=== PATIENT | female | born 2000 | race Caucasian/White ===

== ENCOUNTER 2023-11-21 21:49 | Emergency (ER) | payer BC ==
[2023-11-21 22:17] VITALS: TEMP 98.1
--- NOTE | 2023-11-21 22:23 | ERPHSYRPT ---
- History of Present Illness Time Seen by Provider: 11/21/23 22:23 Historian: patient Exam Limitations: no limitations Patient Subjective Stated Complaint: vomiting since 1300, diffuse abd pain Triage Nursing Assessment: pt ambulatory to bed by self, friend at bedside, pt alert and oriented x3, pt c/o vomiting since 1300, diffuse abd pain/cramping, pt afebrile, pt denies any fever or diarrhea. Physician History: The patient initially presented with severe abdominal pain and persistent vomiting that started around 1 PM on the day of the consultation. The patient described the pain as being diffused throughout the abdomen, with no specific location. The pain was constant and did not radiate elsewhere. No alleviating or aggravating factors were identified. The patient had tried Zofran 4 mg for the vomiting, but it was ineffective. The patient denied any recent exposure to sick individuals, blood in vomit, diarrhea, or the possibility of being . The patient's surgical history included a catheter ablation in March. In a separate consultation, another patient presented with concerns about potential exposure to mononucleosis. The patient reported generalized body soreness, dizziness, and a slightly scratchy throat. No ear pain was reported. The patient denied participation in any sports activities. Timing/Duration: week(s) (1), worse Activities at Onset: rest Quality: sharpness, stabbing Abdominal Pain Onset Location: RLQ, suprapubic Pain Radiation: no radiation Severity of Pain-Max: severe Severity of Pain-Current: severe Modifying Factors: Worsens With: eating, exercise, movement, palpation, vomiting, walking Associated Symptoms: loss of appetite, nausea, vomiting, weakness, No chest pain, No diarrhea, No fever/chills, No neck pain, No shortness of breath Previous symptoms: same symptoms as today Allergies/Adverse Reactions: No Known Drug Allergies Allergy (Verified 11/21/23 22:09) Hx Tetanus, Diphtheria Vaccination/Date Given: Yes Hx Influenza Vaccination/Date Given: No Hx Pneumococcal Vaccination/Date Given: No Immunizations Up to Date: Yes Travel Risk - International Travel Have you traveled outside of the country in past 3 weeks: No - Emerging Infectious Disease Are you exhibiting symptoms associated with any current EIDs: Yes Symptoms: Abdominal Pain, Vomitting - Review of Systems All Other Systems: Reviewed and Negative - Past Medical History Pertinent Past Medical History: Yes Neurological History: No Pertinent History ENT History: No Pertinent History Cardiac History: Arrhythmia Respiratory History: No Pertinent History Endocrine Medical History: No Pertinent History Musculoskeletal History: No Pertinent History GI Medical History: No Pertinent History History: No Pertinent History Psycho-Social History: No Pertinent History Female Reproductive Disorders: No Pertinent History Other Medical History: SVT - Past Surgical History Past Surgical History: Yes Neuro Surgical History: No Pertinent History Cardiac: Other Respiratory: No Pertinent History Gastrointestinal: No Pertinent History Genitourinary: No Pertinent History Musculoskeletal: No Pertinent History Female Surgical History: No Pertinent History Other Surgical History: cardiac ablation - Female History Hx Last Menstrual Period: 11/07/23 Hx Now: No - Social History Smoking Status: Never smoker Exposure to second hand smoke: No Drug Use: none - Social Determinants of Health Will the patient participate in the screening: Yes Do you worry about a steady place to live?: No Do you have any problems with any of the following?: No known problems In the past 12 months,have you had to go without utilities?: No Transportation Issues: No Has anyone in your support network made you feel unsafe?: No Have you or anyone in your house had to go without enough: No - Nursing Vital Signs Nursing Vital Signs: Initial Vital Signs Pulse Rate 78 11/21/23 22:08 Respiratory Rate 20 11/21/23 22:08 Blood Pressure 139/73 11/21/23 22:08 O2 Sat by Pulse Oximetry 98 11/21/23 22:08 Pain Scale Pain Intensity 0 - Physical Exam General Appearance: moderate distress Eye Exam: eyes nml inspection Ears, Nose, Throat Exam: normal ENT inspection Neck Exam: normal inspection, non-tender, supple, full range of motion Respiratory Exam: normal breath sounds Cardiovascular Exam: tachycardia, capillary refill <2 sec Gastrointestinal/Abdomen Exam: soft, tenderness (LLQ, suprapubic) Back Exam: No CVA tenderness Extremity Exam: normal inspection, No swelling Neurologic Exam: alert, oriented x 3, cooperative Skin Exam: normal color, warm, dry, No rash SpO2 Interpretation: normal SpO2: 99 O2 Delivery: Room Air - Course Nursing assessment & vital signs reviewed: Yes - CT Exams Abdomen/Pelvis CT Interpretation: Tele-radiologist Report, No appendicitis, Other (right ovarian cyst, fatty liver) Ordered Tests: Active Orders 24 hr Category Date Time Status Lactic Acid Stat Lab 11/22/23 00:44 Completed UA W/RFX UR CULTURE Stat Lab 11/22/23 01:24 Completed Medication Summary Discontinued Medications Generic Name Dose Route Start Last Admin Trade Name César PRN Reason Stop Dose Admin Droperidol 1.25 mg 11/21/23 22:23 11/21/23 22:49 Droperidol 5 Mg/2 Ml Vial IV 11/21/23 22:24 1.25 mg STAT ONE Administration Droperidol Confirm 11/21/23 22:44 Droperidol 5 Mg/2 Ml Vial Administered 11/21/23 22:45 Dose 5 mg .ROUTE .STK-MED ONE Sodium Chloride 1,000 mls @ 999 mls/hr 11/21/23 22:23 11/22/23 00:01 Sodium Chloride 0.9% 1000 Ml IV 11/21/23 23:23 Infused .Q1H1M STA Infusion Sodium Chloride Confirm 11/21/23 22:45 Sodium Chloride 0.9% 1000 Ml Administered 11/21/23 22:46 Dose 1,000 mls @ ud .ROUTE .STK-MED ONE Sodium Chloride 1,000 mls @ 999 mls/hr 11/21/23 23:37 11/22/23 01:03 Sodium Chloride 0.9% 1000 Ml IV 11/22/23 00:37 Infused .Q1H1M STA Infusion Ceftriaxone Sodium 1 gm in 100 mls @ 200 mls/hr 11/21/23 23:38 11/22/23 00:38 Rocephin 1 Gm / 100 Ml Nacl IV 11/22/23 00:07 Infused STAT ONE Infusion Metronidazole 500 mg in 100 mls @ 200 mls/hr 11/21/23 23:38 11/22/23 00:38 Flagyl 500 Mg Ivpb IV 11/22/23 00:07 Infused STAT STA Infusion Sodium Chloride Confirm 11/21/23 23:53 Sodium Chloride 0.9% 1000 Ml Administered 11/21/23 23:54 Dose 1,000 mls @ ud .ROUTE .STK-MED ONE Metronidazole Confirm 11/21/23 23:53 Flagyl 500 Mg Ivpb Administered 11/21/23 23:54 Dose 500 mg in 100 mls @ ud IV .STK-MED ONE Ceftriaxone Sodium Confirm 11/21/23 23:53 Rocephin 1 Gm / 100 Ml Nacl Administered 11/21/23 23:54 Dose 1 gm in 100 mls @ ud IV .STK-MED ONE Morphine Sulfate 2 mg 11/21/23 22:23 11/21/23 22:51 Morphine Sulfate 2 Mg/Ml Inj IV 11/21/23 22:24 2 mg STAT ONE Administration Morphine Sulfate Confirm 11/21/23 22:45 Morphine Sulfate 2 Mg/Ml Inj Administered 11/21/23 22:46 Dose 2 mg .ROUTE .STK-MED ONE Lab/Rad Data: Laboratory Result Diagrams 11/21/23 22:40 11/21/23 22:40 Laboratory Results 11/22/23 11/22/23 11/21/23 Range/Units 01:24 00:44 22:40 WBC (3.98-10.04) x10^3/uL RBC (3.93-5.22) x10^6/uL Hgb (11.2-15.7) g/dL Hct (34.1-44.9) % MCV (79.4-94.8) fL MCH (25.6-32.2) pg MCHC (32.2-35.5) g/dL RDW (11.7-14.4) % Plt Count (182-369) x10^3/uL MPV (9.4-12.3) fL Gran % (34.0-71.1) % Immature Gran % (Auto) (0.001-0.429) % Nucleat RBC Rel Count (0.00-0.2) % Eos # (Auto) (0.04-0.36) x10^3/uL Immature Gran # (Auto) (0.001-0.031) x10^3u/L Absolute Lymphs (auto) (1.18-3.74) x10^3/uL Absolute Monos (auto) (0.24-0.86) x10^3/uL Absolute Nucleated RBC (0.00-0.012) x10^3u/L Lymphocytes % (19.3-51.7) % Monocytes % (4.7-12.5) % Eosinophils % (0.7-5.8) % Basophils % (0.1-1.2) % Absolute Granulocytes (1.56-6.13) x10^3/uL Basophils # (0.01-0.08) x10^3/uL Sodium (135-145) mmol/L Potassium (3.5-5.1) mmol/L Chloride (98-107) mmol/L Carbon Dioxide (22-30) mmol/L Anion Gap (5-15) MEQ/L BUN (7-17) mg/dL Creatinine (0.52-1.04) mg/dL Estimated GFR ML/MIN Glucose (74-106) mg/dL Lactic Acid 1.9 (0.4-2.0) Calcium (8.4-10.2) mg/dL Total Bilirubin (0.2-1.3) mg/dL AST (14-36) U/L ALT (0-35) U/L Alkaline Phosphatase (38-126) U/L Lactate Dehydrogenase (120-246) U/L Serum Total Protein (6.3-8.2) g/dL Albumin (3.5-5.0) g/dL Lipase (23-300) U/L Serum HCG, Qual NEGATIVE (NEGATIVE) Urine Color Yellow (Yellow) Urine Appearance Clear (Clear) Urine pH 8.5 A (4.6-8.0) Ur Specific Burnham >=1.030 A (1.005-1.030) Urine Protein Trace A (Negative) Urine Glucose (UA) Negative (Negative) mg/dL Urine Ketones 15 A (Negative) Urine Blood Negative (Negative) Urine Nitrite Negative (Negative) Urine Bilirubin Negative (Negative) Urine Urobilinogen 1.0 A (0.2) mg/dL Ur Leukocyte Esterase Negative (Negative) U Hyaline Cast (Auto) NONE SEEN (0-2) /LPF Urine Microscopic RBC 0-2 (0-5) /HPF Urine Microscopic WBC 0-2 (0-5) /HPF Ur Epithelial Cells None Seen (None Seen) /HPF Urine Bacteria None Seen (None Seen) /HPF Urine Culture Reflexed NO (NO) Chlamydia DNA Probe (NEGATIVE) N.gonorrhoeae DNA Probe (NEGATIVE) 11/21/23 11/21/23 11/21/23 Range/Units 22:40 22:40 22:30 WBC 11.9 H (3.98-10.04) x10^3/uL RBC 5.44 H (3.93-5.22) x10^6/uL Hgb 17.0 H (11.2-15.7) g/dL Hct 48.5 H (34.1-44.9) % MCV 89.2 (79.4-94.8) fL MCH 31.3 (25.6-32.2) pg MCHC 35.1 (32.2-35.5) g/dL RDW 12.0 (11.7-14.4) % Plt Count 301 (182-369) x10^3/uL MPV 10.2 (9.4-12.3) fL Gran % 77.3 H (34.0-71.1) % Immature Gran % (Auto) 0.6 H (0.001-0.429) % Nucleat RBC Rel Count 0.0 (0.00-0.2) % Eos # (Auto) 0.01 L (0.04-0.36) x10^3/uL Immature Gran # (Auto) 0.07 H (0.001-0.031) x10^3u/L Absolute Lymphs (auto) 2.20 (1.18-3.74) x10^3/uL Absolute Monos (auto) 0.37 (0.24-0.86) x10^3/uL Absolute Nucleated RBC 0.00 (0.00-0.012) x10^3u/L Lymphocytes % 18.4 L (19.3-51.7) % Monocytes % 3.1 L (4.7-12.5) % Eosinophils % 0.1 L (0.7-5.8) % Basophils % 0.5 (0.1-1.2) % Absolute Granulocytes 9.23 H (1.56-6.13) x10^3/uL Basophils # 0.06 (0.01-0.08) x10^3/uL Sodium 142 (135-145) mmol/L Potassium 4.4 (3.5-5.1) mmol/L Chloride 105 (98-107) mmol/L Carbon Dioxide 19 L (22-30) mmol/L Anion Gap 22.2 H (5-15) MEQ/L BUN 9 (7-17) mg/dL Creatinine 0.87 (0.52-1.04) mg/dL Estimated GFR 96.6 ML/MIN Glucose 110 H (74-106) mg/dL Lactic Acid (0.4-2.0) Calcium 10.6 H (8.4-10.2) mg/dL Total Bilirubin 1.10 (0.2-1.3) mg/dL AST 28 (14-36) U/L ALT 23 (0-35) U/L Alkaline Phosphatase 79 (38-126) U/L Lactate Dehydrogenase 232 (120-246) U/L Serum Total Protein 8.9 H (6.3-8.2) g/dL Albumin 5.3 H (3.5-5.0) g/dL Lipase 67 (23-300) U/L Serum HCG, Qual (NEGATIVE) Urine Color (Yellow) Urine Appearance (Clear) Urine pH (4.6-8.0) Ur Specific Burnham (1.005-1.030) Urine Protein (Negative) Urine Glucose (UA) (Negative) mg/dL Urine Ketones (Negative) Urine Blood (Negative) Urine Nitrite (Negative) Urine Bilirubin (Negative) Urine Urobilinogen (0.2) mg/dL Ur Leukocyte Esterase (Negative) U Hyaline Cast (Auto) (0-2) /LPF Urine Microscopic RBC (0-5) /HPF Urine Microscopic WBC (0-5) /HPF Ur Epithelial Cells (None Seen) /HPF Urine Bacteria (None Seen) /HPF Urine Culture Reflexed (NO) Chlamydia DNA Probe (NEGATIVE) N.gonorrhoeae DNA Probe (NEGATIVE) 11/21/23 11/21/23 Range/Units 22:23 01:30 WBC (3.98-10.04) x10^3/uL RBC (3.93-5.22) x10^6/uL Hgb (11.2-15.7) g/dL Hct (34.1-44.9) % MCV (79.4-94.8) fL MCH (25.6-32.2) pg MCHC (32.2-35.5) g/dL RDW (11.7-14.4) % Plt Count (182-369) x10^3/uL MPV (9.4-12.3) fL Gran % (34.0-71.1) % Immature Gran % (Auto) (0.001-0.429) % Nucleat RBC Rel Count (0.00-0.2) % Eos # (Auto) (0.04-0.36) x10^3/uL Immature Gran # (Auto) (0.001-0.031) x10^3u/L Absolute Lymphs (auto) (1.18-3.74) x10^3/uL Absolute Monos (auto) (0.24-0.86) x10^3/uL Absolute Nucleated RBC (0.00-0.012) x10^3u/L Lymphocytes % (19.3-51.7) % Monocytes % (4.7-12.5) % Eosinophils % (0.7-5.8) % Basophils % (0.1-1.2) % Absolute Granulocytes (1.56-6.13) x10^3/uL Basophils # (0.01-0.08) x10^3/uL Sodium (135-145) mmol/L Potassium (3.5-5.1) mmol/L Chloride (98-107) mmol/L Carbon Dioxide (22-30) mmol/L Anion Gap (5-15) MEQ/L BUN (7-17) mg/dL Creatinine (0.52-1.04) mg/dL Estimated GFR ML/MIN Glucose (74-106) mg/dL Lactic Acid 4.5 H (0.4-2.0) Calcium (8.4-10.2) mg/dL Total Bilirubin (0.2-1.3) mg/dL AST (14-36) U/L ALT (0-35) U/L Alkaline Phosphatase (38-126) U/L Lactate Dehydrogenase (120-246) U/L Serum Total Protein (6.3-8.2) g/dL Albumin (3.5-5.0) g/dL Lipase (23-300) U/L Serum HCG, Qual (NEGATIVE) Urine Color (Yellow) Urine Appearance (Clear) Urine pH (4.6-8.0) Ur Specific Burnham (1.005-1.030) Urine Protein (Negative) Urine Glucose (UA) (Negative) mg/dL Urine Ketones (Negative) Urine Blood (Negative) Urine Nitrite (Negative) Urine Bilirubin (Negative) Urine Urobilinogen (0.2) mg/dL Ur Leukocyte Esterase (Negative) U Hyaline Cast (Auto) (0-2) /LPF Urine Microscopic RBC (0-5) /HPF Urine Microscopic WBC (0-5) /HPF Ur Epithelial Cells (None Seen) /HPF Urine Bacteria (None Seen) /HPF Urine Culture Reflexed (NO) Chlamydia DNA Probe DETECTED A (NEGATIVE) N.gonorrhoeae DNA Probe NOT DETECTED (NEGATIVE) - Progress Progress: improved Counseled pt/family regarding: lab results, diagnosis, need for follow-up, rad results Medical Desision Making - Diagnostic Testing Diagnostic test were ordered, analyzed, and reviewed by me: Yes Radiological Interpretation: Interpreted by me, Reviewed by me, Teleradiologist Report - Risk of complications The pt has a mod risk of morbidity or mortality based on: Need for prescription drug management - Departure Departure Disposition: Home Clinical Impression: Abdominal pain, Nausea and vomiting, Dehydration, Acute gastroenteritis, Ovarian cyst, Fatty liver, Chlamydia infection Condition: Good Critical Care Time: No Referrals: DOCTOR,NO FAMILY [Primary Care Provider] - Follow up/PCP as directed Instructions: Abdominal pain Prescriptions: Doxycycline Hyclate 100 mg PO BID 7 Days #14 tablet Metronidazole 500 mg [Flagyl 500 MG] 500 mg PO TID 7 Days #21 tablet ondansetron HCL [Zofran] 8 mg PO Q4H 3 Days #18 tablet
[2023-11-21 22:42] LABS: Absolute Neutrophil Ct (ANC) 9.23 x10^3/uL (1.56-6.13); BASOPHIL % 0.5 % (0.1-1.2); Basophil (Absolute #) 0.06 x10^3/uL (0.01-0.08); Eosinophil % 0.1 % (0.7-5.8); Eosinophil (Absolute #) 0.01 x10^3/uL (0.04-0.36); Hematocrit 48.5 % (34.1-44.9); IMMATURE GRAN # 0.07 x10^3u/L (0.001-0.031); IMMATURE GRAN % 0.6 % (0.001-0.429); Lymphocytes % 18.4 % (19.3-51.7); Mean Cell Volume 89.2 fL (79.4-94.8); Mean Corpuscular Hemoglobin 31.3 pg (25.6-32.2); Mean Corpuscular Hgb Concent. 35.1 g/dL (32.2-35.5); Mean Platelet Volume 10.2 fL (9.4-12.3); Monocyte (Absolute #) 0.37 x10^3/uL (0.24-0.86); Monocytes % 3.1 % (4.7-12.5); Neutrophil % 77.3 % (34.0-71.1); Platelet Count 301 x10^3/uL (182-369); Red Blood Count 5.44 x10^6/uL (3.93-5.22); White Blood Count 11.9 x10^3/uL (3.98-10.04)
[2023-11-21] MEDS ORDERED: MORPHINE SULFATE 2 MG INJ ONE (22:45)
[2023-11-21] MEDS ORDERED: Sodium Chloride 0.9% 1000 ML 1,000 ML ONE ×2 (22:45→23:53)
[2023-11-21] MEDS: Sodium Chloride 0.9% 1000 ML 1,000 ML IV STA (22:48)
[2023-11-21] MEDS: MORPHINE SULFATE 2 MG INJ IV ONE (22:51)
[2023-11-21 22:56] LABS: ALBUMIN 5.3 g/dL (3.5-5.0); ANION GAP 22.2 MEQ/L (5-15); BILIRUBIN,TOTAL 1.1 mg/dL (0.2-1.3); Calcium 10.6 mg/dL (8.4-10.2); Creatinine 1 0.87 mg/dL (0.52-1.04); EST GLOMERULAR FILTRATION RATE 96.6 ML/MIN; Potassium 4.4 mmol/L (3.5-5.1); Total Protein 8.9 g/dL (6.3-8.2)
[2023-11-21 23:05] LABS: HCG SERUM TEST NEGATIVE (NEGATIVE)
[2023-11-21] MEDS ORDERED: ROCEPHIN 1 GM / 100 ML NaCl 1 GM/100 ML IVPB IV ONE (23:53)
[2023-11-21] MEDS ORDERED: FLAGYL 500 MG IVPB 500 MG/100 ML BAG IV ONE (23:53)
[2023-11-22] MEDS: Sodium Chloride 0.9% 1000 ML 1,000 ML IV STA (00:01)
[2023-11-22] MEDS: FLAGYL 500 MG IVPB 500 MG/100 ML BAG IV STA (00:02)
[2023-11-22] MEDS: ROCEPHIN 1 GM / 100 ML NaCl 1 GM/100 ML IVPB IV ONE (00:06)
[2023-11-22 01:25] VITALS: RESP 17
--- NOTE | 2023-11-22 01:40 | XRAY ---
CLINICAL HISTORY: abd pain COMPARISON: None. TECHNIQUE: Axial CT scan of the abdomen and pelvis was performed with IV contrast. Coronal and sagittal reconstructive images were also obtained. 80cc isovue 370 was given. One of the following dose reduction techniques was utilized for this exam: Automated exposure control, adjustment of the mA and/or kV according to patient size, and use of iterative reconstruction. FINDINGS: Clear scanned lung bases Abdomen: The liver is normal in size showing fatty attenuation with segment II arae of focal fatty infiltrtaion. segment IV psuedo-leison. The portal vein, intrahepatic biliary radicals and the bile ducts are normal. The spleen, pancreas, adrenal glands are unremarkable. The kidneys are unremarkable. They are normal in size and shape. No calculi or hydronephrosis. The gallbladder is normal. No pericholecystic collection or radio dense calculi in the gall bladder. The ascending colon, the transverse colon, the descending colon, visualized small bowel loops are unremarkable. There is no evidence of significant enlargement of the mesenteric or retroperitoneal lymph nodes. Pelvis: The urinary bladder is unremarkable. The rectosigmoid colon is unremarkable. Right pelvic cystic lesion measuring 28 x 12 x 30 mm in maximum AP, transverse and CC dimensions. The uterus is unremarkable. No left adnexal lesions. The pelvic vasculature is unremarkable. No evidence of pelvic lymphadenopathy. Decreased SMA-aortic distance and angle with mild external compression on the third part of the duodenum and left renal vein, possibly due to paucity of abdominal fat. The stomach, small bowel and colon are unremarkable. The appendix is not clearly identified with no right iliac inflammatory changes The osseous structures in the pelvis, lower rib cage and lumbar spine show no abnormality. No lytic or sclerotic bone lesions. IMPRESSION: 1. Right pelvic cystic lesion likely ovarian in origin (functional cyst) for ultrasound correlation. 2. Fatty liver. 3. Otherwise, unremarkable study. Electronically Signed by: Benjamin So MD. (11/22/2023 01:36:11 EDT)
[2023-11-22 01:41] LABS: Appearance Clear (Clear); Bacteria None Seen /HPF (None Seen); Bilirubin Negative (Negative); Blood Negative (Negative); Epithelial Cells None Seen /HPF (None Seen); Glucose, Urine Negative (Negative); Hyaline Casts NONE SEEN /LPF (0-2); Ketones 15 (Negative); Leukocyte Esterase Negative (Negative); Nitrite Negative (Negative); Ph 8.5 (4.6-8.0); Protein,Urine Dip Trace (Negative); RBC 0-2 /HPF (0-5); Specific Gravity >=1.030 (1.005-1.030); WBC 0-2 /HPF (0-5)
[2023-11-22 01:45] LABS: ADD URINE CULTURE? NO (NO)
[2023-11-22 02:05] VITALS: BP 139/79; PULSE 76
[2023-11-22 03:03] LABS: CHLAMYDIA DNA DETECTED (NEGATIVE); GC DNA Probe NOT DETECTED (NEGATIVE)
[2023-11-22 04:11] VITALS: O2SAT 99
== END 2023-11-22 02:04 | disposition home or self-care (01) ==
LOC: ED 21:49
DX: K52.9 Noninfective gastroenteritis and colitis, unspecified (principal); R10.84 Generalized abdominal pain; R11.2 Nausea with vomiting, unspecified; E86.0 Dehydration; N83.201 Unspecified ovarian cyst, right side; K76.0 Fatty (change of) liver, not elsewhere classified; A74.9 Chlamydial infection, unspecified
CPT/HCPCS: 36000; 36415; 74177; 80053; 81001; 83605; 83615; 83690; 84703; 85025; 87491; 87591; 96365; 96368; 96374; 96375; 99284; J0696; J2270